=== PATIENT | male | born 1975 ===

== ENCOUNTER 2022-03-23 21:05 | Emergency (ER) | payer SELFPAY ==
[2022-03-23 21:18] VITALS: BP 130/75; PULSE 70; RESP 16; TEMP 36.9; O2SAT 95; BMI 24.3
--- NOTE | 2022-03-24 01:07 | ED.WOUNDLAC ---
HPI - Wound/Laceration General Chief Complaint: Wound/Laceration Stated Complaint: Rt index finger lac Time Seen by Provider: 03/24/22 01:07 Source: patient Mode of arrival: Ambulatory History of Present Illness HPI narrative: Patient is a 46-year-old male without past medical history presenting with right index finger is injury. He says he was at work using a table saw when he cut his right index finger. He is right-hand dominant. Injury happened around 430 this afternoon. No numbness or tingling. It does involve the nail Related Data Previous Rx's Medication Instructions Recorded cephalexin 500 mg capsule 500 mg PO TID 7 days #21 caps 03/24/22 Allergies Allergy/AdvReac Type Severity Reaction Status Date / Time No Known Drug Allergies Allergy Verified 03/23/22 17:29 Review of Systems Review of Systems Narrative: GENERAL: Denies chills,fever HEENT: Denies throat pain RESPIRATORY: Denies dyspnea, cough, wheezing CARDIOVASCULAR: Denies chest pain, palpitations GASTROINTESTINAL: Denies nausea, vomiting MUSCULOSKELETAL: Denies extremity pain, injury SKIN: See HPI NEUROLOGIC: Denies weakness, dizziness, headache, numbness 8 point review of systems is negative except for those stated above and HPI Patient History Medical History Finger laceration with complication Social History Smoking Status: Never smoker Smoking Status: Never smoker alcohol intake frequency: 0-2 drinks per day Substance Use Type: marijuana Exam Initial Vital Signs Initial Vital Signs: Vital Signs Temperature 98.5 F 03/23/22 21:18 Pulse Rate 70 03/23/22 21:18 Respiratory Rate 16 03/23/22 21:18 Blood Pressure 130/75 03/23/22 21:18 Pulse Oximetry 95 03/23/22 21:18 Oxygen Delivery Method 03/23/22 21:18 GENERAL: Well-appearing, well-nourished and in no acute distress. CARDIOVASCULAR: peripheral pulses in tact, cap refill <2 sec RESPIRATORY: No respiratory distress, speaks in full sentences without difficulty EXTREMITIES: Normal range of motion, no clubbing or edema. Neurovascularly intact NEUROLOGICAL: Cranial nerves II through XII grossly intact. Normal gait and speech. SKIN: Warm, dry, no petechiae, no rashes or lesions. Skin Fingers- Fingertip Back: 1. partial nail amputation. flap present. Procedures Laceration Repair Laceration 1: Site: hand (index finger) Side (If applicable): right Size (cm): 3 Description: stellate, flap and irregular Depth: simple, single layer Local Anesthetic: lidocaine 1% Amount of anesthesia used (mL): 4 Pre-repair: wound explored, irrigated extensively and deep structures intact Skin layer closed with: nylon Skin layer suture size: 4-0 Number of sutures: 8 Nerve Block Nerve Block 1: Local Anesthetic: lidocaine 1% Amount of anesthesia used (mL): 4 Side: right Nerve Blocks: digital Procedure Successful: Yes Patient Tolerated Procedure: Well and No complications Course Orders Ordered: ED Orders 03/24/22 01:27 XR finger RT min 2V Stat Discontinued Medications Acetaminophen (Acetaminophen 325 Mg Tablet) 975 mg PO NOW ONE Stop: 03/24/22 02:51 Last Admin: 03/24/22 03:03 Dose: 975 mg Documented By: MORALES Bacitracin (Bacitracin Oint 0.9 Gm Pckt) 1 applic TOP NOW ONE Stop: 03/24/22 02:51 Last Admin: 03/24/22 03:03 Dose: 1 applic Documented By: MORALES Cefazolin Sodium (Cephalexin 250 Mg Prepack) 1 bottle MISC SEEINSTR ONE Stop: 03/24/22 02:51 Last Admin: 03/24/22 03:03 Dose: 500 mg Documented By: MORALES Ibuprofen (Ibuprofen 400 Mg Tablet) 800 mg PO NOW ONE Stop: 03/24/22 02:51 Last Admin: 03/24/22 03:03 Dose: 800 mg Documented By: MORALES Lidocaine HCl (Lidocaine 1% (Pf)) 6 ml SUBCUT NOW ONE Stop: 03/24/22 01:30 Last Admin: 03/24/22 03:02 Dose: 4 ml Documented By: MORALES Vital Signs Vital signs: Vital Signs - 8 hr 03/23/22 21:18 Temperature 98.5 F Pulse Rate 70 Respiratory Rate 16 Blood Pressure 130/75 Pulse Oximetry 95 Oxygen Delivery Method Room Air MDM - Wound/Laceration Imaging Data Extremity x-ray #1: Radiologist's Impression: HerbertFloro Luis MR#: [id number] : 1975 Acct:[id number] Age/Sex: 46 / M Date of Service: 03/24/22 Loc: ED Accession Number: [id number] ?? Procedure: XR finger RT min 2V Ordering Provider: Monse Ventura D.O. PROCEDURE:? XR FINGER RT MIN 2V ? INDICATIONS:? table saw ? TECHNIQUE:? AP hand, 2 views of the 2nd digit acquired ? COMPARISON:? None. ? FINDINGS:? ? Bones:? There is a bony defect involving the ulnar aspect of the 2nd distal phalanx consistent with a fracture with multiple punctate bony fragments.? No dislocations. ? Soft tissues:? There is a soft tissue laceration involving the ulnar aspect of the 2nd digit. ? IMPRESSION:? ? 1. Soft tissue laceration of the 2nd digit with associated fracture of the 2nd distal phalanx.? ? ? Dictated by: Emiliano Kwok M.D. on 03/24/2022 at 1:49 ? ? MDM Narrative Medical decision making narrative: Patient is a 46-year-old male presents with a table saw injury to right index finger with tuft fracture. There is definite loss of nail however able to close area with existing skin. It is irrigated he is put on antibiotics. He states tetanus is up-to-date Discharge Plan Departure Patient Disposition: Home Clinical Impression: Finger fracture, right Finger laceration with complication Qualifiers: Encounter type: initial encounter Qualified Code(s): S61.219A - Laceration without foreign body of unspecified finger without damage to nail, initial encounter Instructions: DI for Laceration Repair, DI for Laceration Repair -- Finger Activity Restrictions/Additional Instructions: *You have been diagnosed with right index finger laceration and fracture *What to do: Your finger is broken it will take 6-8 weeks to fully heal. Keep splint on limit use. His sutures will need to be removed in about 7[place] Keep finger clean and dry with soap and water. I recommend covering it while working and uncovering it at nighttime. Elevate and ice it as needed. I also recommend following up with Orthopedics *Continue to take medications as directed Tylenol 1000 mg every 6 hours if needed for [id number] pain Ibuprofen 600 mg every 6 hours if needed for [id number] pain Keflex 500 mg 3 times a day for 7 days *Follow up with your primary care provider in 2-3 days or call [phone] Call orthopedics tomorrow to schedule follow-up appointment *Return to ER if you should have increasing pain swelling redness numbness or any new, worsening or concerning symptoms Prescriptions: New cephalexin 500 mg capsule 500 mg PO TID 7 Days Qty: 21 0RF Referrals: [facility] [Provider Group] Celestine Lombardi DO [Primary Care Provider] - Visit Report Forms: Patient Portal/API
--- NOTE | 2022-03-24 01:27 | DI.RAD.S_ITS ---
PROCEDURE: XR FINGER RT MIN 2V INDICATIONS: table saw TECHNIQUE: AP hand, 2 views of the 2nd digit acquired COMPARISON: None. FINDINGS: Bones: There is a bony defect involving the ulnar aspect of the 2nd distal phalanx consistent with a fracture with multiple punctate bony fragments. No dislocations. Soft tissues: There is a soft tissue laceration involving the ulnar aspect of the 2nd digit. IMPRESSION: 1. Soft tissue laceration of the 2nd digit with associated fracture of the 2nd distal phalanx. Dictated by: Emiliano Kwok M.D. on 03/24/2022 at 1:49 Approved by: Emiliano Kwok M.D. on 03/24/2022 at 1:52
[2022-03-24] MEDS: LIDOCAINE 1% (PF) 6 ML SUBCUT (03:02)
[2022-03-24] MEDS: BACITRACIN OINT 0.9 GM PCKT 1 APPLIC TOP (03:03)
[2022-03-24] MEDS: cephALEXin 250 MG PREPACK 1 BOTTLE MISC (03:03)
[2022-03-24] MEDS: ACETAMINOPHEN 325 MG TABLET 975 MG PO (03:03)
[2022-03-24] MEDS: IBUPROFEN 400 MG TABLET 800 MG PO (03:03)
--- NOTE | 2022-03-24 03:32 | PC.NURSE ---
Did not visualized finger prior to suture repair defer full assessment to Dr Ventura.
== END 2022-03-24 03:33 | disposition home or self-care (01) ==
PROVIDERS: Emergency Provider Emergency Medicine; PCP Family Medicine
DX: S62.630A Displaced fracture of distal phalanx of right index finger, initial encounter for closed fracture (principal); S61.310A Laceration without foreign body of right index finger with damage to nail, initial encounter; W29.3XXA Contact with powered garden and outdoor hand tools and machinery, initial encounter; Y99.0 Civilian activity done for income or pay
CPT/HCPCS: 12002; 64450; 73140; 99283